=== PATIENT | male | born 1990 | race Caucasian/White ===

== ENCOUNTER 2016-12-01 19:56 | Emergency (ER) | payer BC, OTHER ==
[2016-12-01] MEDS ORDERED: ACETAMINOPHEN 1,000 MG/100 ML BTL IVPB ONE (20:21)
[2016-12-01] MEDS ORDERED: 0.9 % SODIUM CHLORIDE 1,000 ML BAG IV ONE (20:21)
--- NOTE | 2016-12-01 20:23 | Emergency Department Record ---
History of Present Illness - General Chief Complaint: Headache Migraine Stated Complaint: FITZGERALD Time Seen by Provider: 12/01/16 20:10 Source: Patient, Family Mode of Arrival: Ambulatory Limitations: No limitations - History of Present Illness Initial Comments: 26 yo male with a complicated history of Crohn's with multiple abdominal surgeries with resections presents with 3 days of chills and subjective fevers. He has had waxing and waning headaches. 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 His care has mostly been out of the [facility] or [facility]. No vomiting. No new abdominal pain. He has chronic pain that is mostly in the LUQ. He takes oral dilaudid. Last does was Thursday. No confusion or mental status changes. He has been having a rapid heart rate that he has noted. He has chronic loose stools that are unchanged. MD Complaint: Headache, Other -: Days(s) (3) Onset Description: Gradual Location: Diffuse Severity: Moderate Quality: Aching Consistency: Constant Improves With: Nothing Worsens With: None Context: Other Associated Symptoms: Fever - Related Data Home Medications Medication Instructions Recorded Confirmed Last Taken 0.9 % Sodium Chloride 1000ML 1 bag IV BID 02/28/16 12/01/16 12/01/16 [Premix 1000ML Ns] Sodium/Pot/Mag/Calc/Chlor/Acet 2,400 ml IV Q12HR 02/28/16 12/01/16 12/01/16 [TPN Electrolytes II IV Soln] Colesevelam HCl [Welchol] 625 mg PO BID 12/01/16 12/01/16 12/01/16 Sertraline HCl [Zoloft] 50 mg PO QHS 12/01/16 12/01/16 11/30/16 Allergies Allergy/AdvReac Type Severity Reaction Status Date / Time sulfamethoxazole Allergy RASH Verified 02/28/16 19:25 [From ] trimethoprim [From ] Allergy RASH Verified 02/28/16 19:25 vancomycin Allergy RASH Verified 12/01/16 20:04 Review of Systems Constitutional: Reports: Chills, Fever, Malaise, Weakness Eyes: Denies: Eye discharge, Eye pain, Photophobia, Vision change ENT: Denies: Congestion, Throat pain Respiratory: Denies: Cough, Dyspnea, Hemoptysis, Stridor, Wheezes Cardiovascular: Reports: Palpitations. Denies: Chest pain, Syncope Endocrine: Denies: Fatigue, Polydipsia, Polyuria Gastrointestinal: Reports: Abdominal pain. Denies: Diarrhea Genitourinary: Denies: Dysuria, Frequency, Hematuria Musculoskeletal: Denies: Arthralgia, Back pain, Myalgia, Neck pain Skin: Denies: Bruising, Change in color, Rash Neurological: Reports: Headache, Weakness. Denies: Numbness Psychiatric: Denies: Anxiety Hematological/Lymphatic: Denies: Blood Clots, Easy bleeding, Easy bruising, Swollen glands Past Medical History - SOCIAL HISTORY Smoking Status: Never smoker - RESPIRATORY Hx Respiratory Disorders: No - CARDIOVASCULAR Hx Cardio Disorders: No - NEURO Hx Neuro Disorders: No - GI Hx GI Disorders: Yes Hx Abdominal Pain: (2 abscesses in abd.) Hx Crohn's Disease: Yes (Malabsorption issue-no solid foods.) Comment:: only 4 ft left in small intestines w/strictures in there. - Hx Genitourinary Disorders: No - ENDOCRINE Hx Endocrine Disorders: No - MUSCULOSKELETAL Hx Musculoskeletal Disorders: No - PSYCH Hx Psych Problems: No - HEMATOLOGY/ONCOLOGY Hx Hematology/Oncology Disorders: Yes Hx Anemia: Yes Comment:: Jenny's Family Medical History Family Hx Comment (NOT TO BE USED IN PLACE OF ITEMS BELOW): Father w/Crohn's Hx Diabetes: Father, Mother Hx Heart Disease: Grandparents Hx HTN: Father Physical Exam - General General Appearance: Alert, Oriented x3, Cooperative, No acute distress, Other ( alert, no confusion) Limitations: No limitations - Head Head exam: Normal inspection - Eye Eye exam: Normal appearance, PERRL. negative: Conjunctival injection, Scleral icterus - ENT ENT exam: Normal exam, Mucous membranes moist Ear exam: Normal external inspection Nasal Exam: Normal inspection Mouth exam: Normal external inspection Teeth exam: Normal inspection Throat exam: Normal inspection - Neck Neck exam: Normal inspection, Full ROM. negative: Lymphadenopathy, Meningismus (fever supple neck with full ROM, no signs of menigeal irritation), Tenderness - Respiratory Respiratory exam: Normal lung sounds bilaterally, Other. negative: Accessory muscle use, Chest wall tenderness, Decreased breath sounds, Respiratory distress , Rhonchi, Stridor, Wheezes - Cardiovascular Cardiovascular Exam: Normal rhythm, Normal heart sounds, Tachycardia. negative : Regular rate Peripheral Pulses: 2+: Radial (R), Radial (L) - GI/Abdominal GI/Abdominal exam: Soft, Tenderness (soft abdomen but some tenderness in the luq - he states it is typical in location), Other (Tender in the left upper, soft). negative: Distended, Guarding, Rebound - Rectal Rectal exam: Deferred - exam: Deferred - Extremities Extremities exam: Normal inspection, Full ROM, Normal capillary refill. negative: Tenderness - Back Back exam: Reports: Normal inspection, Full ROM. Denies: CVA tenderness (R), CVA tenderness (L), Muscle spasm, Rash noted, Tenderness - Neurological Neurological exam: Alert, Normal gait, Oriented X3, Reflexes normal. negative: Altered, Motor sensory deficit - Psychiatric Psychiatric exam: Normal affect, Normal mood. negative: Agitated, Anxious, Depressed - Skin Skin exam: Dry, Intact, Normal color, Warm. negative: Cyanosis, Diaphoretic, Erythema, Mottled Course - Reevaluation(s) Reevaluation #1: 12/01/16 21:17 The labs were reviewed Hgb is 8.8 with WBC of 8.1 On the CMP the K is 3.0 His CXR was read as no acute process His CRP is elevated at 16 His Lactic Acid is elevated 3.5 The patient was given IV Ofirmev for his fever He was given a 2 Liter bolus of NS Culture X;s 2 were taken of his blood His HR is improved to 119 from 150's. I will contact the [facility] for likely transfer for possible sepsis line infection He clinically is not consistent with meningitis with a supple neck and normal mental status, no light sensitivity Reevaluation #2: HR 117, BP 93/43 12/01/16 21:48 Reevaluation #3: I SW Dr Hartman of [facility] ED through the transfer line He accepts the patient for transfer to [facility] ED 12/01/16 21:51 Reevaluation #4: EKG 19:58 sinus tachycardia rate 150, intervals normal, axis rightward, ST no acute changes 12/02/16 00:27 Medical Decision Making - Lab Data Result diagrams: 12/01/16 20:10 12/01/16 20:10 Disposition Disposition: Transfer Clinical Impression: Sepsis Qualifiers: Sepsis type: sepsis due to unspecified organism Qualified Code(s): A41.9 - Sepsis, unspecified organism Disposition: Acute Care Hospital Transfer Transfer To: [facility] Reason For Transfer: Sepsis Accepting Physician: Minnie Time Discussed w/Accepting Physician: 21:52 Condition: (2) Stable Forms: Patient Portal Access Time of Disposition: 21:55
[2016-12-01 20:29] LABS: HEMATOCRIT 28.5 % (42.0-52.0); HEMOGLOBIN 8.8 gm/dl (14.0-18.0); MEAN CELL VOLUME 68.2 fl (81-97); MEAN CORPUSCULAR HGB CONC 30.9 g/dl (32-36); PLATELET COUNT 148 K/uL (130-400); RED BLOOD COUNT 4.18 M/uL (4.40-5.70); RED CELL DISTRIBUTION WIDTH 18.6 % (11.5-14.5); WHITE BLOOD COUNT W/O DIFF 8.1 K/uL (4.2-12.2)
[2016-12-01 20:41] LABS: INR 1.03; PARTIAL THROMBOPLASTIN TIME 34.3 SECONDS (24.5-39.1); PROTHROMBIN TIME (PATIENT) 11.6 SECONDS (9.5-12.1)
[2016-12-01 20:58] LABS: ALB/GLOB RATIO 0.9 (1.1-1.8); ALBUMIN 2.8 gm/dL (3.5-5.0); ALKALINE PHOSPHATASE 223 U/L (38-126); ALT/SGPT 46 U/L (21-72); ANION GAP 6.8 (7-16); AST/SGOT 39 U/L (17-59); BILIRUBIN,TOTAL 1.14 mg/dL (0.2-1.3); BLOOD UREA NITROGEN 16 mg/dL (9-20); CARBON DIOXIDE 23.2 mmol/L (22-30); CREATININE 1.1 mg/dL (0.66-1.25); EST GLOMERULAR FILTRATION RATE > 60 ml/min; GLUCOSE,RANDOM 107 mg/dL (70-110); TOTAL PROTEIN 5.9 gm/dL (6.3-8.2)
[2016-12-01 21:11] LABS: ERYTHROCYTE SEDIMENTATION RATE 18 mm/hr (0-15)
[2016-12-01] MEDS ORDERED: HYDROMORPHONE HCL 1 MG/ML CPJ IVP ONE (21:12)
[2016-12-01 21:13] LABS: C-REACTIVE PROTEIN 16.5 mg/dL (0.0-0.9)
[2016-12-01] MEDS ORDERED: PIPERACILLIN SODIUM/TAZOBACTAM 4.5 GM in 0.9 % SODIUM CHLORIDE 100ML 100 ML IVPB SCH (22:00)
== END 2016-12-01 22:21 | disposition short-term general hospital (02) ==
LOC: ER 19:56
DX: T80.219A Unspecified infection due to central venous catheter, initial encounter (principal); T80.211A Bloodstream infection due to central venous catheter, initial encounter; A41.89 Other specified sepsis; G89.29 Other chronic pain; R10.12 Left upper quadrant pain; R50.9 Fever, unspecified; R19.7 Diarrhea, unspecified; R51 Headache; K50.90 Crohn's disease, unspecified, without complications
CPT/HCPCS: 99285 ×2; 96365; 96375; 96361; 83605; 85651; 85730; 85610; 86140; 80053; 85027; 71010; 93005; 93010; J1170; J2543; J7030